=== PATIENT | female | born 2000 | race Caucasian/White ===

== ENCOUNTER 2022-03-19 10:33 | Emergency (ER) | payer BC, SELFPAY ==
--- NOTE | 2022-03-19 10:38 | ED.WOUNDLAC ---
HPI - Wound/Laceration General Chief Complaint: Skin/Abscess/Foreign Body Stated Complaint: spider bite left leg Time Seen by Provider: 03/19/22 10:38 Source: patient Mode of arrival: ambulatory Limitations: no limitations History of Present Illness HPI narrative: Ms. Callahan is a 21-year-old female patient presenting to the clinic today with complaints of a possible spider bite to her left leg x2 days. She reports that she noticed a pustule to her left upper leg and it has become more tender and hard with redness and swelling surrounding the area. She thinks she may have been bitten by a spider. She denies any fever or chills. States that it does not itch but it fong. Related Data Home Medications Medication Instructions Recorded Confirmed sertraline 50 mg tablet mg 03/19/22 Allergies Allergy/AdvReac Type Severity Reaction Status Date / Time No Known Allergies Allergy Verified 03/19/22 10:47 Review of Systems Review of Systems: Pertinent positives per HPI. Patient denies any fever, chills, rash, headache, visual changes, dizziness, cough, runny nose, sore throat, shortness of breath, chest pain, palpitations, nausea, vomiting, diarrhea, constipation, abdominal pain, or any urinary issues. PMFSH Comments At the time of my signature, I reviewed and agree with the nursing past medical, surgical, social, and family history. There is no relevant family history pertinent to the patient complaint. Exam Narrative: General: Well-developed, well nourished, in no apparent distress Head: Normocephalic, atraumatic. Cardio: Regular rate and rhythm, s1 and s2 normal, no murmur appreciated. Resp: Clear to auscultation bilaterally, no rhonchi, rales, wheezing or rubs. Integumentary: [place], warm, and dry, intact without lesion, half dollar size induration and redness to the left inner thigh, erythremia and tenderness noted without fluctuation. Course Course Emergency Course: Portions of this record may have been created with voice recognition software. Level of Care: Express Care Visit Vital Signs Vital signs: Vital Signs Temperature 36.6 C 03/19/22 10:46 Pulse Rate 71 03/19/22 10:46 Respiratory Rate 16 03/19/22 10:46 Blood Pressure 112/80 03/19/22 10:46 Pulse Oximetry 100 03/19/22 10:46 Oxygen Delivery Room Air 03/19/22 10:46 Temperature 36.6 C 03/19/22 10:48 Pulse Rate 71 03/19/22 10:48 Respiratory Rate 16 03/19/22 10:48 Blood Pressure 112/80 03/19/22 10:48 Pulse Oximetry 100 03/19/22 10:48 Oxygen Delivery Room Air 03/19/22 10:48 Vital signs reviewed MDM - Wound/Laceration MDM Narrative Medical decision making narrative: At the time of visit patient was resting comfortably on the exam table. I suspect that she has a staph infection to the left medial upper leg. I will place her on a course of doxycycline and supportive measures were discussed with the patient she voiced understanding of discharge instructions and agrees to treatment plan peer Differential Diagnosis Differential diagnosis: Likely abscess and other (Skin infection) Discharge Plan Discharge Clinical Impression: Skin infection Patient Disposition: Home, Self-Care Condition: Stable Instructions: Antibiotic Form, Abscess (ED) Additional Instructions: Take doxycycline as directed Take tylenol/motrin as needed for pain Cool compresses. May take Benadryl 25-50mg every 6 hours as needed for itching/swelling Follow up with your PCP in 3-5 days if symptoms persist or sooner if they worsen Prescriptions: New doxycycline monohydrate 100 mg capsule 100 mg PO BID 7 Days Qty: 14 0RF No Action sertraline 50 mg Tablet Follow-up/Referrals: UNKNOWN,DOCTOR [Primary Care Provider] - Stand Alone Forms: Work/School Release IP Time of Disposition: 10:59 Quality NIHSS Nursing Documentation ED NIHSS nursing documentation: reviewed/agree
[2022-03-19 10:46] VITALS: BP 112/80; PULSE 71; RESP 16; TEMP 36.6; O2SAT 100
[2022-03-19 10:48] VITALS: BP 112/80; PULSE 71; RESP 16; TEMP 36.6; O2SAT 100
== END 2022-03-19 11:03 | disposition home or self-care (01) ==
PROVIDERS: Emergency Provider Nurse Practitioner Family
DX: L08.9 Local infection of the skin and subcutaneous tissue, unspecified (principal); F41.9 Anxiety disorder, unspecified; F32.A Depression, unspecified
CPT/HCPCS: 99213; G0463

== ENCOUNTER 2022-04-10 13:08 | Emergency (ER) | payer BC, SELFPAY ==
--- NOTE | 2022-04-10 13:12 | ED.EAR ---
HPI - Ear Problem General Chief complaint: Ear Stated complaint: left ear clogged and pain Time Seen by Provider: 04/10/22 13:10 Source: patient Mode of arrival: ambulatory Limitations: no limitations History of Present Illness HPI Narrative: Ms. Callahan is a 21-year-old female patient presenting to the clinic today with complaints of left ear pain, fullness, and feeling muffled. She reports this has been going on for approximately 2 days. Has tried some Debrox with very minimal relief. Also has taken some Motrin for the discomfort. Reports that she has been swimming a lot over the last week. Has pain with touching around her ear. Related Data Allergies Allergy/AdvReac Type Severity Reaction Status Date / Time No Known Allergies Allergy Verified 04/10/22 13:17 Review of Systems Review of Systems: Pertinent positives per HPI. Patient denies any fever, chills, rash, headache, visual changes, dizziness, cough, runny nose, sore throat, shortness of breath, chest pain, palpitations, nausea, vomiting, diarrhea, constipation, abdominal pain, or any urinary issues. PMFSH Comments At the time of my signature, I reviewed and agree with the nursing past medical, surgical, social, and family history. There is no relevant family history pertinent to the patient complaint. Exam Narrative: General: Well-developed, well nourished, in no apparent distress Head: Normocephalic, atraumatic Eyes: Pupils equally round and reactive to light bilaterally, EOM intact, sclera and conjunctive clear, no discharge, lids normal Ears: Right TMs intact and clear, left TM intact, red, mild bulging, with redness and excoriation in the left ear canal, eventually a small amount of cerumen blocked visualization of the TM but this was cleared using ear irrigation, no drainage, grossly hearing normal. Nose: Nares patent, no discharge, no inflammation, no sinus tenderness. Mouth: Oropharynx without lesions or masses, good dentition, MMM. Neck: Supple, trachea midline, no enlargement of anterior or posterior cervical nodes, no thyroid masses or goiter palpable. Cardio: Regular rate and rhythm, s1 and s2 normal, no murmur appreciated. Resp: Clear to auscultation bilaterally anteriorly and posteriorly, no rhonchi, rales, wheezing or rubs Course Course Emergency Course: Portions of this record may have been created with voice recognition software. Level of Care: Express Care Visit Vital Signs Vital signs: Vital signs reviewed Procedures Ear Wax Removal Left Ear: Ear Wax Removal Date: 04/10/22 Results: Re-examined: cerumen removed completely TM Examination: TM(s) erythematous Ear Canal Exam: other (Erythemic and swollen) Patient Tolerated Procedure: well Complications: no problems Technique: ear canal irrigated Additional Comments: Verbal consent obtained for ear irrigation. Risk and benefits explained and patient voiced understanding. Ear irrigation performed using an elephant ear and spray water bottle. Mixture of 1/2 peroxide 1/2 water used to irrigate ear canal. Cerumen impaction cleared and TM visualized with redness Grossly hearing normal. Patient tolerated procedure well Medical Decision Making MDM Narrative Medical decision making narrative: At the time of visit patient is resting comfortably on exam table. She has left otitis media and otitis externa. I will send in a prescription for some amoxicillin oral and some ofloxacin eardrops. I will also give her a prescription for some Diflucan as she does get vaginal yeast infections with use of antibiotics. Supportive measures were discussed with the patient she voiced understanding of discharge instructions. Differential Diagnosis Differential Diagnosis: Cerumen impaction, otitis media, otitis externa, otalgia, eustachian tube dysfunction Discharge Plan Discharge Clinical Impression: Impacted cerumen of left ear Otitis media Qual
[2022-04-10 13:15] VITALS: BP 122/95; PULSE 92; RESP 20; TEMP 36.6; O2SAT 100
== END 2022-04-10 13:32 | disposition home or self-care (01) ==
PROVIDERS: Emergency Provider Nurse Practitioner Family
DX: H61.22 Impacted cerumen, left ear (principal); H66.002 Acute suppurative otitis media without spontaneous rupture of ear drum, left ear; H60.312 Diffuse otitis externa, left ear
CPT/HCPCS: 69209; 99213; G0463

== ENCOUNTER 2022-06-11 19:03 | Emergency (ER) | payer BC, SELFPAY ==
--- NOTE | 2022-06-11 19:05 | ED.URI ---
HPI - URI/Sore Throat General Chief Complaint: Ear Stated Complaint: SWOLLEN NECK/CONGESITON/SPOTS IN THROAT Time Seen by Provider: 06/11/22 19:05 Source: patient and RN notes reviewed History of Present Illness HPI Narrative: Patient is a 21-year-old female who presents the urgent care with complaints of swollen lymph nodes, spots in the back of her throat, and mild congestion. Patient denies of any ill exposures. Denies any fever, nausea or vomiting. 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 Patient states she took Benadryl today. No other acute complaints. No acute distress noted. Patient aware of the plan of care. Some parts of this dictation were generated by voice recognition software and may contain typographical and/or grammatical inaccuracies. Related Data Home Medications Medication Instructions Recorded Confirmed sertraline 50 mg tablet 50 mg PO DAILY 06/11/22 06/11/22 Allergies Allergy/AdvReac Type Severity Reaction Status Date / Time general anesthesia AdvReac Nausea and Uncoded 06/11/22 19:15 Vomiting Review of Systems Review of Systems: CONSTITUTIONAL: Denies fever, chills, or sweats. EYES: Denies visual changes, redness, or discharge. ENT: Reports of congestion, sore throat and swollen lymph nodes CARDIOVASCULAR: Denies chest pain, palpitations, or edema. RESPIRATORY: Denies cough or dyspnea. GASTROINTESTINAL: Denies abdominal pain, nausea, vomiting, or diarrhea. GENITOURINARY: Denies dysuria or hematuria. SKIN: Denies rash or itching. MUSCULOSKELETAL: Denies back pain, joint pain, or myalgia. NEUROLOGIC: Denies headache, numbness, or weakness. All other systems reviewed are negative, except as documented in HPI. PMFSH Comments At the time of my signature, I reviewed and agree with the nursing past medical, surgical, social, and family history. There is no relevant family history pertinent to the patient complaint. Exam Narrative: GENERAL: This is a well-nourished, well-developed patient, in no apparent distress. HEAD: normocephalic, atraumatic. EYES: PERRL. Sclera clear/white. Vision is grossly intact. EARS: External ears normal, auditory canals clear and without drainage, TMs normal without perforation. Hearing grossly intact. NOSE: External nose normal with no obvious nasal discharge, nares without redness, no rhinorrhea. THROAT: Mucous membranes moist, mild erythema noted to bilateral tonsils with scant bilateral exudate with moderate postnasal drainage NECK: Neck supple, mildly tender right submandibular lymphadenopathy CARDIOVASCULAR: Regular rate and rhythm without murmurs, gallops, or rubs. RESPIRATORY: Clear to auscultation. Breath sounds equal bilaterally. No wheezes, rales, or rhonchi. SKIN: warm, intact with no suspicious lesions or rash, good texture and turgor. NEURO: awake, alert, and oriented to person, place and time. There were no obvious focal neurologic abnormalities. EXTREMITIES: No clubbing, cyanosis, or edema. Course Course Level of Care: Express Care Visit Vital Signs Vital signs: Vital Signs Temperature 99.3 F 06/11/22 19:16 Pulse Rate 104 H 06/11/22 19:16 Respiratory Rate 20 06/11/22 19:16 Blood Pressure 122/80 06/11/22 19:16 Pulse Oximetry 100 06/11/22 19:16 Temperature 99.3 F 06/11/22 19:16 Pulse Rate 104 H 06/11/22 19:16 Respiratory Rate 20 06/11/22 19:16 Blood Pressure 122/80 06/11/22 19:16 Pulse Oximetry 100 06/11/22 19:16 Reviewed MDM - URI/Sore Throat MDM Narrative Medical decision making narrative: Reviewed lab results with the patient. She is aware that strep swab was negative. Educated patient on culture we will call within 72 hours if culture is positive and antibiotics are necessary. Symptoms are consistent with common cold/viral pharyngitis. Treat symptoms with [id number] antihistami
[2022-06-11 19:16] VITALS: BP 122/80; PULSE 104; RESP 20; TEMP 37.4; O2SAT 100
== END 2022-06-11 19:26 | disposition home or self-care (01) ==
PROVIDERS: Emergency Provider Nurse Practitioner Family
DX: J02.9 Acute pharyngitis, unspecified (principal); F41.9 Anxiety disorder, unspecified; F32.A Depression, unspecified
CPT/HCPCS: 87081; 87880; 99213; G0463

== ENCOUNTER 2022-09-10 17:06 | Emergency (ER) | payer BC, SELFPAY ==
--- NOTE | 2022-09-10 17:13 | ED.URI ---
HPI - URI/Sore Throat General Chief Complaint: Upper Respiratory Infection Stated Complaint: cough, sore throat, sinus congestion, fever Time Seen by Provider: 09/10/22 17:24 Source: patient and RN notes reviewed Mode of arrival: ambulatory Limitations: no limitations History of Present Illness HPI Narrative: 22-year-old female presents concern for 10 day history of sinus congestion, postnasal drainage, sore throat, cough. She reports she began having a low-grade fever today. She reports she started taking Mucinex DM today. MD elicited complaint: cough, rhinorrhea and nasal congestion Related Data Home Medications Medication Instructions Recorded Confirmed sertraline 50 mg tablet 50 mg PO DAILY 06/11/22 09/10/22 Allergies Allergy/AdvReac Type Severity Reaction Status Date / Time general anesthesia AdvReac Nausea and Uncoded 09/10/22 17:15 Vomiting Review of Systems Review of Systems: CONSTITUTIONAL: Reports malaise, low-grade fever. EYES: Denies visual changes, redness, or discharge. ENT: Reports rhinorrhea, congestion, sinus pain,and sore throat. CARDIOVASCULAR: Denies chest pain, palpitations, or edema. RESPIRATORY: Reports cough. Denies dyspnea. GASTROINTESTINAL: Denies abdominal pain, nausea, vomiting, diarrhea SKIN: Denies rash or itching. MUSCULOSKELETAL: Denies myalgia. NEUROLOGIC: Denies headache. All systems reviewed & are unremarkable except as noted in HPI and below PMFSH Comments At time of signature, agree with nursing past medical, surgical, social and family history. There is no relevant family history pertinent to the presenting complaint Exam Narrative: GENERAL: Well-appearing, well-nourished, and in no acute distress. HEAD: Normocephalic EYES: PERRLA, conjunctivae clear ENT: Nares clear, turbinates edematous and erythematous. Mucous membranes moist. TM pearly amaral with sharp light reflex bilaterally; no tragal tenderness. Oropharynx not erythematous without lesions. Tonsils not enlarged and without exudate, no drooling, no hoarseness, no trismus, uvula midline. NECK: Supple. No lymphadenopathy CHEST: Clear to auscultation, breath sounds equal. No wheezing, rhonchi, rales, or stridor. No respiratory distress, speaks in full sentences. HEART: Regular rate and rhythm. No murmur heard. SKIN: Warm, dry, no rash. NEURO: Alert and oriented x3. PSYCH: Normal mood and affect Course Course Emergency Course: Patient is aware of diagnosis, understands and agrees to treatment plan. Anticipatory guidance given. Patient agrees to follow-up as directed and is aware of reasons to seek care at the emergency department. Portions of this record may have been created with voice recognition software Level of Care: Express Care Visit Vital Signs Vital signs: Reviewed. MDM - URI/Sore Throat MDM Narrative Medical decision making narrative: Differential diagnosis considered: [place] virus, strep pharyngitis, allergic rhinitis, upper respiratory tract infection, sinusitis, rhinosinusitis, nasopharyngitis. viral pharyngitis, otitis media, otitis externa, pneumonia, bronchitis, viral cough syndrome, viral syndrome, and influenza. Exam findings show no acute concerns or changes; patient is non-toxic appearing and is in no distress. Patient is appropriate for outpatient treatment and follow-up. Lab Data Attestation: I reviewed the patient's lab results. Critical Care Time Critical Care Time Critical Care Time: No Discharge Plan Discharge Clinical Impression: Acute bacterial sinusitis Patient Disposition: Home, Self-Care Condition: Stable Instructions: Antibiotic Form, Sinusitis (ED) Additional Instructions: Take medications as prescribed Nonprescription pain medications, such as acetaminophen (eg, Tylenol) or ibuprofen (eg, Motrin, Advil), are recommended for pain. Flushing the nose and sinuses with a saline solution several times per day has been proven to decrease pain associated with con
[2022-09-10 17:15] VITALS: BP 111/73; PULSE 83; RESP 20; TEMP 37.1; O2SAT 100
== END 2022-09-10 17:33 | disposition home or self-care (01) ==
PROVIDERS: Emergency Provider Nurse Practitioner
DX: J02.9 Acute pharyngitis, unspecified (principal); J01.90 Acute sinusitis, unspecified; B96.89 Other specified bacterial agents as the cause of diseases classified elsewhere
CPT/HCPCS: 99213; G0463

== ENCOUNTER 2022-10-01 14:31 | Emergency (ER) | payer BC, SELFPAY ==
--- NOTE | 2022-10-01 14:43 | ED.URI ---
HPI - URI/Sore Throat General Chief Complaint: Upper Respiratory Infection Stated Complaint: cold symptoms Time Seen by Provider: 10/01/22 14:43 Source: patient and RN notes reviewed History of Present Illness HPI Narrative: Patient is a 22-year-old female who presents to urgent care with complaints of congestion, mild cough, sore throat, fatigue, headache, intermittent fevers. Patient states her symptoms have improved over the last 24 hours however she has missed work for the last couple days. Patient states she had positive exposure to her roommates for influenza A. Patient has been taking Mucinex and Zyrtec with minimal improvement. Denies of a fever over the last 24 hours. No other acute complaints. No acute distress noted. Patient aware of the plan of care. Some parts of this dictation were generated by voice recognition software and may contain typographical and/or grammatical inaccuracies. Related Data Home Medications Medication Instructions Recorded Confirmed sertraline 50 mg tablet 50 mg PO DAILY 06/11/22 09/10/22 Allergies Allergy/AdvReac Type Severity Reaction Status Date / Time general anesthesia AdvReac Nausea and Uncoded 09/10/22 17:15 Vomiting Review of Systems Review of Systems: CONSTITUTIONAL: Reports of intermittent fevers and fatigue EYES: Denies visual changes, redness, or discharge. ENT: Reports rhinorrhea, congestion, mild sore throat CARDIOVASCULAR: Denies chest pain, palpitations, or edema. RESPIRATORY: Reports of improving cough without dyspnea GASTROINTESTINAL: Denies abdominal pain, nausea, vomiting, or diarrhea. GENITOURINARY: Denies dysuria or hematuria. SKIN: Denies rash or itching. MUSCULOSKELETAL: Denies back pain, joint pain. Reports body aches NEUROLOGIC: Denies headache, numbness, or weakness. All other systems reviewed are negative, except as documented in HPI. PMFSH Comments At the time of my signature, I reviewed and agree with the nursing past medical, surgical, social, and family history. There is no relevant family history pertinent to the patient complaint. Exam Narrative: GENERAL: This is a well-nourished, well-developed patient, in no apparent distress. HEAD: normocephalic, atraumatic. EYES: PERRL. Sclera clear/white. Vision is grossly intact. EARS: External ears normal, auditory canals clear and without drainage, TMs normal without perforation. Hearing grossly intact. NOSE: External nose normal with no obvious nasal discharge, nares without redness, clear rhinorrhea. THROAT: Mucous membranes moist, posterior pharynx clear. Moderate postnasal drainage NECK: Neck supple, non-tender without lymphadenopathy CARDIOVASCULAR: Regular rate and rhythm without murmurs, gallops, or rubs. RESPIRATORY: Clear to auscultation. Breath sounds equal bilaterally. No wheezes, rales, or rhonchi. SKIN: warm, intact with no suspicious lesions or rash, good texture and turgor. NEURO: awake, alert, and oriented to person, place and time. There were no obvious focal neurologic abnormalities. EXTREMITIES: No clubbing, cyanosis, or edema. Course Course Level of Care: Express Care Visit Vital Signs Vital signs: Vital Signs Temperature 98.2 F 10/01/22 14:54 Pulse Rate 91 10/01/22 14:54 Respiratory Rate 16 10/01/22 14:54 Blood Pressure 117/78 10/01/22 14:54 Pulse Oximetry 100 10/01/22 14:54 Temperature 98.2 F 10/01/22 14:54 Pulse Rate 91 10/01/22 14:54 Respiratory Rate 16 10/01/22 14:54 Blood Pressure 117/78 10/01/22 14:54 Pulse Oximetry 100 10/01/22 14:54 Reviewed MDM - URI/Sore Throat MDM Narrative Medical decision making narrative: Reviewed lab results with the patient. She is aware that her flu swab was negative. Advised patient continue Mucinex for cough and congestion. Continue Tylenol/ibuprofen as needed. Increase water intake and rest. Follow-up with your PCP within 2-5 days or for worsening symptoms or failure to improve.
[2022-10-01 14:54] VITALS: BP 117/78; PULSE 91; RESP 16; TEMP 36.8; O2SAT 100
== END 2022-10-01 15:10 | disposition home or self-care (01) ==
PROVIDERS: Emergency Provider Nurse Practitioner Family
DX: B34.9 Viral infection, unspecified (principal); F41.9 Anxiety disorder, unspecified; F32.A Depression, unspecified
CPT/HCPCS: 87804; 99213; G0463

== ENCOUNTER 2023-11-02 11:02 | Emergency (ER) | payer BC, SELFPAY ==
--- NOTE | 2023-11-02 11:06 | ED.URI ---
HPI - URI/Sore Throat General Chief Complaint: Upper Respiratory Infection Stated Complaint: Sinus Infection Symptoms Source: patient and RN notes reviewed Mode of arrival: ambulatory Limitations: no limitations History of Present Illness HPI Narrative: Patient is a 23-year-old female who presents to the [facility] with complaints of a sore throat and cough for the past 3 days. She reports a consistent sore throat. States that she has had a frequent productive cough with yellow sputum. Yesterday, she began having nasal congestion and drainage along with a headache. She states that the headache has persisted. She denies recent fevers or chills. Denies chest pain or shortness of breath. Denies abdominal pain, nausea, vomiting, diarrhea. Related Data Allergies Allergy/AdvReac Type Severity Reaction Status Date / Time general anesthesia AdvReac Nausea and Uncoded 11/02/23 11:30 Vomiting Review of Systems Review of Systems: CONSTITUTIONAL: Denies fever, chills, or sweats. EYES: Denies visual changes, redness, or discharge. ENT: Denies otalgia but reports sore throat. Reports nasal drainage. CARDIOVASCULAR: Denies chest pain, palpitations, or edema. RESPIRATORY: Reports cough but denies dyspnea. GASTROINTESTINAL: Denies abdominal pain, nausea, vomiting, or diarrhea. GENITOURINARY: Denies dysuria or hematuria. SKIN: Denies rash or itching. MUSCULOSKELETAL: Denies back pain, joint pain, or myalgia. NEUROLOGIC: Reports headache, but denies numbness or weakness. Pertinent positives per HPI. PMFSH Comments At the time of my signature, I reviewed and agree with the nursing past medical, surgical, social, and family history. There is no relevant family history pertinent to the patient complaint. Exam Narrative: GENERAL: This is a well-nourished, well-developed patient, in no apparent distress. HEAD: normocephalic, atraumatic. EYES: Sclera clear/white. Vision is grossly intact. EARS: External ears normal, auditory canals clear and without drainage, TMs normal without perforation. Hearing grossly intact. NOSE: External nose normal. + rhinorrhea. THROAT: Mucous membranes moist, oropharyngeal erythema without exudate or ulceration. NECK: Neck supple, non-tender without lymphadenopathy, masses or thyromegaly. CARDIOVASCULAR: Regular rate and rhythm without murmurs, gallops, or rubs. RESPIRATORY: Clear to auscultation. Breath sounds equal bilaterally. No wheezes, rales, or rhonchi. GASTROINTESTINAL: Abdomen soft, non-tender, nondistended. Bowel sounds are active. No hepato-splenomegaly, or palpable masses. No guarding. SKIN: warm, intact with no suspicious lesions or rash, good texture and turgor. NEURO: awake, alert, and oriented to person, place and time. There were no obvious focal neurologic abnormalities. Course Course Level of Care: Express Care Visit Vital Signs Vital signs: Vital Signs Temperature 97.9 F 11/02/23 11:14 Pulse Rate 91 11/02/23 11:14 Respiratory Rate 16 11/02/23 11:14 Blood Pressure 113/80 11/02/23 11:14 Pulse Oximetry 100 11/02/23 11:14 Temperature 97.9 F 11/02/23 11:14 Pulse Rate 91 11/02/23 11:14 Respiratory Rate 16 11/02/23 11:14 Blood Pressure 113/80 11/02/23 11:14 Pulse Oximetry 100 11/02/23 11:14 Reviewed MDM - URI/Sore Throat MDM Narrative Medical decision making narrative: Viral illness may last between 7-21 days; antibiotics do not cure viral illness and are NOT recommended at this time. Also, recommend symptomatic treatment includes: rest, fluids, and increase humidity of the air at home. Recommend Acetaminophen as directed on the bottle to reduce fever, pain, headache. Please schedule a follow-up visit with your personal physician for further evaluation and treatment within 3-5days. If your symptoms persist, change or worsen significantly before you can contact your personal physician then please, without delay, go to the emergency departm
[2023-11-02 11:14] VITALS: BP 113/80; PULSE 91; RESP 16; TEMP 36.6; O2SAT 100
== END 2023-11-02 11:51 | disposition home or self-care (01) ==
PROVIDERS: Emergency Provider Nurse Practitioner
DX: B34.9 Viral infection, unspecified (principal); J02.0 Streptococcal pharyngitis; B95.0 Streptococcus, group A, as the cause of diseases classified elsewhere; Z20.822 Contact with and (suspected) exposure to COVID-19
CPT/HCPCS: 87081; 87147; 87426; 87804; 87880; 99213; G0463